=== PATIENT | male | born 1975 | race Caucasian/White ===

== ENCOUNTER 2018-12-08 21:33 | Emergency (ER) | payer BC, SELFPAY ==
[2018-12-08 21:34] VITALS: BP 151/85; PULSE 81; RESP 16; TEMP 36.9; O2SAT 100; BMI 30.2
[2018-12-08 21:43] VITALS: BP 164/90; PULSE 96; RESP 14; O2SAT 98
--- NOTE | 2018-12-08 22:02 | EKG12_ITS ---
Test Reason : PALPITATIONS Blood Pressure : / mmHG Vent. Rate : 092 BPM Atrial Rate : 092 BPM P-R Int : 130 ms QRS Dur : 090 ms QT Int : 364 ms P-R-T Axes : 008 018 -05 degrees QTc Int : 450 ms Sinus rhythm with Premature atrial complexes Otherwise normal ECG Confirmed by SIL HART ([id number]), desk editor EBONY RODRIGEZ ([id number]) on 12/10/2018 10:11:45 AM Referred By: DC Confirmed By:SIL HART
--- NOTE | 2018-12-08 22:15 | RAD_ITS ---
HISTORY:palpitations palpitations EXAM: XR Chest 1 View: COMPARISON: None FINDINGS: # of images incl. paperwork: 1 LINES/DEVICES: None. LUNGS: Radiographically clear. No consolidation, edema or effusion. No pneumothorax. MEDIASTINUM AND CARDIOVASCULAR STRUCTURES: Cardiac silhouette not enlarged. BONES AND SOFT TISSUES: Unremarkable. RAD/Chest 1 View (Portable) IMPRESSION: No radiographic evidence of acute cardiopulmonary disease. at 2223 Reported and signed by: Jen Villatoro DO Electronically Signed: Jen Villatoro DO at 22:22 EDT Tel , Service support ,
[2018-12-08 22:24] LABS: Absolute Lymphocyte Count 2.72 X10^3/uL (0.83-4.51); Absolute Neutrophil Count 3.9 X10^3/uL (2.0-7.7); Basophil# 0.06 X10^3/uL; Basophil% 0.8 % (0-1); Eosinophil# 0.11 X10^3/uL; Eosinophils% 1.5 % (0-5); Hemoglobin 15.4 g/dL (13.0-16.5); Lymphocyte # 2.72 X10^3/ul (4.0); Lymphocyte % 35.9 % (19-41); Mean Corpuscular Hgb 28.3 pg (27.0-32.0); Mean Corpuscular Volume 80.9 fL (80-94); Mean Platelet Vol. 9.9 fl (6.2-12.0); Monocyte# 0.73 X10^3/uL; Monocyte% 9.6 % (0-10); NRBC Flagged by Analyzer 0 % (0-5); Neutrophil # 3.94 X10^3/uL (2.7-7.7); Neutrophil % 52.1 % (47-70); Platelet Count 242 K/mm3 (150-450); RBC Distribution Width CV 12.5 % (11.6-14.6); RBC Distribution Width SD 36.3 fl (35.1-43.9); Red Blood Count 5.44 M/mm3 (4.6-6.2); White Blood Count 7.6 K/mm3 (4.4-11.0)
[2018-12-08 22:43] LABS: Anion Gap 7 (5-15); BUN 12 mg/dL (7-18); BUN/Creat Ratio 13.3 RATIO (10-20); Calcium,Total 9.2 mg/dL (8.5-10.1); Chloride 102 mmol/L (98-107); EST Glomerular Filtration Rate 99 mL/min (>60); Est Glom Filt Rate - Afr Amer 119 mL/min (>60); Estimated Creatinine Clearance 122.07 ml/min; Glucose 120 mg/dL (74-106); Potassium 3.4 mmol/L (3.5-5.1); Sodium Level 136 mmol/L (136-145)
--- NOTE | 2018-12-08 23:05 | CON.PCM_ITS ---
Reason for Consult Date of Consultation: 12/08/18 Reason for Consultation: Chest discomfort and palpitations History of Present Illness: The patient is a 43 year old M with a past medical history significant for hypertension and hyperlipidemia who has been having 3 to 4 days of palpitations, and chest discomfort on at least one day. He has been in his usual state of health but he says that these appeared to be occurring and more frequently in the evening. He is denied any sustained runs of the palpitations or any chest tightness with exertion. He has not had any shortness of breath no dizziness no diaphoresis no near syncope or syncope. He has been compliant with his medic ations. Due to the frequency of the palpitations he presented to the emergency room today and was evaluated. [] Past Medical History Allergies/Adverse Reactions: Allergies No Known Allergies Allergy (Verified 12/08/18 21:37) Home Medications: Ambulatory Orders Medication Instructions Recorded Atorvastatin Calcium 10 mg PO DAILY 12/08/18 Lisinopril/Hydrochlorothiazide 1 ea PO DAILY 12/08/18 [Lisinopril-Hctz 10-12.5 mg Tab] Omeprazole 20 mg PO DAILY 12/08/18 Surgical History: no surgical history Lives: Spouse/ Significant Other Smoking Status: Never smoker Alcohol: Rare Drugs: None Review of Systems - Review of Systems General: Denies: Fever, Night Sweats, Fatigue HEENT: Denies: Vision Change Cardiovascular: Reports: Chest Discomfort, Palpitations. Denies: Shortness of Breath, Orthopnea, PND, Peripheral Edema, Lightheadedness, Dizziness, Near Syncope, Syncope Respiratory: Denies: Cough, Sputum Production, Hemoptysis Gastrointestinal: Denies: Hematemesis, Hematochezia, Melena Genitourinary: Denies: Dysuria, Hematuria Muscoloskeletal: Denies: Myalgias Skin: Denies: Rash Neurological: Denies: Dizziness Psychiatric: Denies: Anxiety Endocrine: Denies: Excessive Sweating Hematologic/ Lymphatic: Denies: Anemia Subjectve: Pleasant gentleman in no apparent distress Objective: Vital Signs Temp Pulse Resp BP Pulse Ox 98.5 F 96 14 164/90 H 98 12/08/18 21:34 12/08/18 21:43 12/08/18 21:43 12/08/18 21:43 12/08/18 21:43 Oxygen Delivery Method Room Air Weight: 229 lb 4.492 oz Body Mass Index (BMI) 30.2 General: Awake, Alert, Oriented x 3 HEENT: PERRL, EOMI, Sclera Non Icteric Neck: Supple, Good ROM, No Lymph Node Enlargement Lungs: Clear to auscultation Cardiovascular: Regular Rhythm, Premature Ectopic Beats, Normal S1, Normal S2, No Murmurs, No Rubs, No Gallops Vascular: No Carotid Bruits, Normal Femoral Pulses, Normal Radial Pulses, Normal Dorsalis Pedal Pulse, Normal Posterior Tibial Pulses Abdomen: Bowel Sounds Present, Soft, Non Tender, No HSM, No Organomegaly Extremities: No Cyanosis, No Clubbing, No edema Musculoskeletal: No Erythema Skin: No Rashes Lymphatic: No Lymph Node Enlargement Neurological: No Focal Motor or Sensory Deficit Psych/Mental Status: Appropriate 12/08/18 21:50: WBC 7.6, RBC 5.44, Hgb 15.4, Hct 44.0, MCV 80.9, MCH 28.3, MCHC 35.0, Plt Count 242, MPV 9.9, Immature Gran % (Auto) 0.100, Neut % (Auto) 52.1, Lymph % (Auto) 35.9, [place] % (Auto) 9.6, Eos % (Auto) 1.5, Baso % (Auto) 0.8, Absolute Neuts (auto) 3.9, Nucleated RBC % 0 12/08/18 21:50: Sodium 136, Potassium 3.4 L, Chloride 102, Carbon Dioxide 27.0, Anion Gap 7, BUN 12, Creatinine 0.90, Est GFR (MDRD) Af Amer 119, Est GFR (MDRD) Non-Af 99, BUN/Creatinine Ratio 13.3, Glucose 120 H, Calcium 9.2, Troponin I < 0.015 Rhythm: EKG: Normal sinus rhythm with premature atrial complexes and no acute changes Assessment/Plan 1. Palpitations. * The above appeared to be likely to the premature atrial complexes which may be secondary to the hypokalemia. My recommendation at this time will be to replace his potassium and see how he does. If he continues to have these palpitations then one may consider a 24-hour Holter monitor. An echocardiogram may also be considered as an outpatient. At this time however I do not see any significant ventricular ectopy to be of significant concern. * 2. Hypertension * His blood pressure appears to be still elevated despite his medical therapy. My recommendation will be to add lisinopril 10 mg a day to his current regimen. We would eventually change his prescription to lisinopril hydrochlorothiazide 20/12.5 mg a day. I suspect he does have some diastolic dysfunction which may be causing some of his chest discomfort. He should continue to monitor his blood pressure. * 3. Chest discomfort * The above appears to be atypical. I would recommend continuing his current therapy and considering an outpatient myocardial perfusion stress test. He tells me that he did have a regular stress test approximately 9 months ago. * Cardiac enzymes today are negative which is reassuring. * * Thank you for allowing me to participate in the care of your patient. Please don't hesitate to call if any issues arise
--- NOTE | 2018-12-08 23:05 | ED.VISSUMM ---
- ER Visit Summary Date of Service: 12/08/18 Chief Complaint: Palpitations History of Present Illness: The patient is a 43 M with palpitations for about 5 days. Symptoms have been intermittent. He feels like his heart is fluttering and skipping beats. No other associated symptoms. No chest pain. No history of coronary disease. He does have a history of hypertension and takes lisinopril. Also reports a history of MVP and hyperlipidemia. No history of DVT or PE. No respiratory symptoms. No fevers or recent illness. Physical Examination: Afebrile and vital signs are unremarkable. Heart is a regular but normal rate. Lungs are clear. Extremities nontender with no edema. Skin normal in color. Calves soft and supple. Test Results: EKG shows sinus rhythm at a rate of 92 with PACs. CBC, BMP, troponin unremarkable except for potassium of 3.4. Chest x-ray normal. Emergency Department Course and Treatment: Dr. Downs had been expecting the patient to arrive in the ED. I reviewed his labs, EKG, chest x-ray. Treated him with potassium here. Dr. Downs evaluated the patient. He will increase his lisinopril dose. He will call in the prescription. He advised to replace potassium as well. Patient will be discharged to follow-up in the office. Treatment Plan: As above Disposition: Discharge Impression: 1. Palpitations 2. Hypokalemia This note was generated with [employer] software. It may contain incorrect words, spelling, and punctuation that were not noted in review of the chart prior to signing ED Disposition - Plan for ED Patient: Referrals: [facility] Doctor,Out of [Primary Care Provider] -
--- NOTE | 2018-12-08 23:08 | ED.DEP ---
ED Disposition - Plan for ED Patient: Instructions: Palpitations Referrals: Ambrosio Downs MD [STAFF PHYSICIAN] -
[2018-12-08 23:20] VITALS: BP 120/76; PULSE 86; RESP 16; O2SAT 98
== END 2018-12-08 23:20 | disposition home or self-care (01) ==
LOC: ED 22:33
PROVIDERS: Emergency Provider Emergency Medicine; Family Provider Internal Medicine; PCP Internal Medicine
DX: R00.2 Palpitations (principal); E87.6 Hypokalemia; I10 Essential (primary) hypertension; I34.1 Nonrheumatic mitral (valve) prolapse; E78.00 Pure hypercholesterolemia, unspecified; I49.1 Atrial premature depolarization; Z79.899 Other long term (current) drug therapy
CPT/HCPCS: 71045; 80048; 84484; 85025; 93005; 99285; A4216

== ENCOUNTER → 2018-12-16 | Outpatient (CLI) | payer BC, SELFPAY ==
[2018-12-16 16:29] VITALS: BMI 30.4
[2018-12-16 18:31] LABS: Anion Gap 4 (5-15); BUN 18 mg/dL (7-18); BUN/Creat Ratio 19.9 RATIO (10-20); Calcium,Total 8.9 mg/dL (8.5-10.1); Chloride 102 mmol/L (98-107); EST Glomerular Filtration Rate 98 mL/min (>60); Est Glom Filt Rate - Afr Amer 119 mL/min (>60); Glucose 94 mg/dL (74-106); Magnesium 2.3 mg/dL (1.6-2.6); Potassium 3.8 mmol/L (3.5-5.1); Sodium Level 135 mmol/L (136-145)
== END | disposition home or self-care (01) ==
PROVIDERS: Family Provider Internal Medicine; PCP Internal Medicine; Referring Provider Internal Medicine Cardiovascular Disease; Visit Provider Internal Medicine Cardiovascular Disease
DX: I10 Essential (primary) hypertension (principal); R00.2 Palpitations
CPT/HCPCS: 36415; 80048; 83735

== ENCOUNTER → 2019-01-08 | Outpatient (CLI) | payer BC, SELFPAY ==
[2018-12-16 16:29] VITALS: BMI 30.4
--- NOTE | 2019-01-08 14:13 | ECHOCS_ITS ---
Reason For Study: Arrhythmia Procedure This was a 2D Doppler, Color Flow transthoracic echocardiogram. Contrast injection was performed. Exam performed in department. Left Ventricle Normal LV size. Left ventricular systolic function is normal. The estimated ejection fraction is 65 %. Normal diastology for age. No regional wall motion abnormalities noted. Right Ventricle Normal RV size. Normal systolic function. Mitral Valve Normal mitral valve. Tricuspid Valve Normal tricuspid valve. Aortic Valve Normal aortic valve. Trisinus/trileaflet aortic valve. Pulmonic Valve Normal pulmonic valve. Great Vessels Normal aortic root. The pulmonary artery is normal size. Normal inferior vena cava. Pericardium/Pleural No pericardial effusion. Medication Performed a rapid injection of agitated mix of 9 cc saline and 1cc air to assess for atrial septal defect. Diluted definity 2ml given slow IV push to enhance endocardial definition. MMode/2D Measurements & Calculations LVIDd: 5.0 cm IVSd: 1.1 cm Ao root diam: 3.2 cm LVIDs: 3.2 cm LVPWd: 1.1 cm RVDd: 3.6 cm FS: 37.4 % LAV(MOD-bp): 37.4 ml LVAd ap4: 35.5 cm2 SV(MOD-sp4): 87.0 ml LAV(MOD-bp) Indexed: 16.4 ml/m2 EDV(MOD-sp4): 122.0 ml LAV(MOD-sp2): 34.1 ml EDV(sp4-el): 124.4 ml LAV(MOD-sp4): 37.4 ml LVAs ap4: 16.4 cm2 ESV(MOD-sp4): 35.0 ml ESV(sp4-el): 33.4 ml EF(MOD-sp4): 71.3 % EF(sp4-el): 73.2 % SV(sp4-el): 91.1 ml LA A4 area: 15.4 cm2 LA dimension(2D): 4.6 cm RA A4 area: 9.9 cm2 Doppler Measurements & Calculations MV E max jeremiah: 77.1 cm/sec Lat Peak E' Jeremiah: 7.9 cm/sec Med Peak E' Jeremiah: 6.5 cm/sec MV A max jeremiah: 86.9 cm/sec E/E' lat: 9.7 E/E' med: 11.8 MV E/A: 0.89 Ao V2 max: 177.2 cm/sec LV V1 max: 138.7 cm/sec PA V2 max: 126.8 cm/sec Ao max P.6 mmHg LV V1 max P.7 mmHg Ao V2 mean: 118.6 cm/sec Ao mean P.2 mmHg Ao V2 VTI: 26.3 cm TR max jeremiah: 256.0 cm/sec TR max P.2 mmHg Interpretation Summary Normal LV size. Left ventricular systolic function is normal. The estimated ejection fraction is 65 %. Normal diastology for age. Contrast injection was performed. Structurally normal valves. Ordering Physician: Ambrosio Downs Referring Physician: Lb Calhoun Performed By: Anna Wells, RDCHRISTIANNE, RVT
== END | disposition home or self-care (01) ==
LOC: CVS 14:12
PROVIDERS: Family Provider Internal Medicine; PCP Internal Medicine; Referring Provider Internal Medicine Cardiovascular Disease; Visit Provider Internal Medicine Cardiovascular Disease
DX: R00.2 Palpitations (principal); E78.5 Hyperlipidemia, unspecified; I10 Essential (primary) hypertension
CPT/HCPCS: 93225; 93226; 93306; Q9957; A4216; C8929